=== PATIENT | male | born 1965 | race African-American/Black ===

== ENCOUNTER 2018-01-24 12:40 | Emergency (ER) | payer OTHER, SELFPAY ==
[2018-01-24] MEDS ORDERED: diphenhydrAMINE 50 MG CAP ONE (13:00)
[2018-01-24] MEDS ORDERED: Famotidine 20 MG TAB ONE (13:00)
[2018-01-24] MEDS ORDERED: HYDROcodone/Acetaminophen 10/325 mg Tablet ONE (13:22)
== END 2018-01-24 14:20 | disposition home or self-care (01) ==
LOC: ERS 12:40
DX: T63.461A Toxic effect of venom of wasps, accidental (unintentional), initial encounter (principal); F41.9 Anxiety disorder, unspecified; F32.9 Major depressive disorder, single episode, unspecified; F17.210 Nicotine dependence, cigarettes, uncomplicated
CPT/HCPCS: 94640; J7620

== ENCOUNTER 2018-02-20 02:34 | Emergency (ER) | payer OTHER ==
[2018-02-20] MEDS ORDERED: methylPREDNISolone Sod Succ/PF 125 MG/2 ML VIAL ONE (02:42)
[2018-02-20] MEDS ORDERED: diphenhydrAMINE 50 MG/ML VIAL ONE (02:42)
[2018-02-20] MEDS ORDERED: Water For Inject, Bacteriostat 30 ML ONE (02:42)
[2018-02-20] MEDS ORDERED: EPINEPHrine 1 MG/ML AMP ONE (02:42)
[2018-02-20] MEDS ORDERED: Famotidine/PF 20 mg/2ml Vial SLOW IVP SCH (04:00)
== END 2018-02-20 06:00 | disposition home or self-care (01) ==
LOC: ERS 02:34
DX: T78.1XXA Other adverse food reactions, not elsewhere classified, initial encounter (principal); Z71.6 Tobacco abuse counseling; F41.9 Anxiety disorder, unspecified; F32.9 Major depressive disorder, single episode, unspecified; F17.210 Nicotine dependence, cigarettes, uncomplicated
CPT/HCPCS: 96372; 96374; 96375; 99406; J0171; J1200; J2930; S0028

== ENCOUNTER 2021-05-13 13:56 | Emergency (ER) | payer OTHER ==
[2021-05-13 20:43] LABS: SARS-CoV-2 PCR by NAA Not Detected (NotDetected)
== END 2021-05-13 15:30 | disposition home or self-care (01) ==
LOC: ERS 13:56
DX: B34.9 Viral infection, unspecified (principal); Z20.822 Contact with and (suspected) exposure to COVID-19; F17.210 Nicotine dependence, cigarettes, uncomplicated
CPT/HCPCS: 71046; U0003; U0005

== ENCOUNTER 2022-02-17 15:01 | Emergency (ER) | payer OTHER ==
[2022-02-17 17:03] LABS: #Eosinphils 0.5 thou/uL (0.0-0.7); #Monocytes 0.7 thou/uL (0.11-0.59); #Neutrophils 3.2 thou/uL (1.40-6.50); %Basophils 0.5 % (0.0-1.0); %Eosinophils 7.8 % (0.0-10.0); %Lymphocytes 31.3 % (21.0-51.0); %Neutrophils 49.4 % (42.0-75.0); Hemoglobin 13.7 g/dL (14.0-18.0); Mean Corpuscular HGB CONC 31.6 g/dL (32.0-36.0); Mean Corpuscular Hemoglobin 30.6 pg (27.0-31.0); Mean Corpuscular Volume 96.7 fL (78.0-98.0); Mean Platelet Volume 7.3 fL (7.4-10.4); Platelet Count 287 thou/uL (130-400); RBC Distribution Width 12.7 % (11.5-14.5); Red Blood Cell (RBC) Count 4.48 mill/uL (4.70-6.10); White Blood Cell (WBC) Count 6.4 thou/uL (4.8-10.8)
[2022-02-17 17:23] LABS: ALT (SGPT) 36 U/L (8-55); AST (SGOT) 41 U/L (5-34); Albumin 3.1 g/dL (3.5-5.0); Alkaline Phosphatase 91 U/L (40-110); Anion Gap 12 mmol/L (10-20); BUN (Urea Nitrogen) 10 mg/dL (8.4-25.7); Bilirubin, Total 0.5 mg/dL (0.2-1.2); Calc. Creatinine Clearance 0 mL/min (70-130); Calcium 8.3 mg/dL (7.8-10.44); Carbon Dioxide 28 mmol/L (22-29); Chloride 106 mmol/L (98-107); Estimated GFR 90; Globulin 2.2 g/dL (2.4-3.5); Glucose 60 mg/dL (70-105); Potassium 3.9 mmol/L (3.5-5.1); Protein, Total 5.3 g/dL (6.0-8.3); Sodium 142 mmol/L (136-145)
[2022-02-17] MEDS ORDERED: Morphine 4 MG/ML VIAL ONE ×2 (18:23→19:35)
[2022-02-17] MEDS ORDERED: Ketorolac Tromethamine 30 MG/ML VIAL ONE (18:23)
[2022-02-17] MEDS ORDERED: Doxycycline 100 MG CAP PO SCH (19:30)
== END 2022-02-17 19:49 | disposition home or self-care (01) ==
LOC: ERS 15:01
DX: M71.121 Other infective bursitis, right elbow (principal); I10 Essential (primary) hypertension; F17.210 Nicotine dependence, cigarettes, uncomplicated
CPT/HCPCS: 36415; 80053; 85025; 85652; 86140; J1885; J2270